=== PATIENT | female | born 1995 | race Caucasian/White ===

== ENCOUNTER 2018-03-12 14:40 | Emergency (ER) | payer BC ==
[~2018-03-12] VITALS: Ht 165.1 cm; Wt 68.9 kg
[~2018-03-12 14:40] MED LIST: BIRTH CONTROL IMPLAN; CLARITIN,ALAVAR10 MG PO; DULCOLAX5 MG PO; FLONASE16 G1 BOTH NARES; NO HOME MEDS; OXYCODONE-APAP1 EACH PO
[2018-03-12 17:02] VITALS: BP 134/70
== END 2018-03-12 17:16 | disposition home or self-care (01) ==
LOC: EME 14:40
DX: O99.323 Drug use complicating pregnancy, third trimester (principal); F14.10 Cocaine abuse, uncomplicated; F17.200 Nicotine dependence, unspecified, uncomplicated; O99.333 Smoking (tobacco) complicating pregnancy, third trimester; Z88.0 Allergy status to penicillin
CPT/HCPCS: 99281; 99284

== ENCOUNTER 2018-04-03 21:14 | Inpatient (IN) | payer BC ==
[~2018-04-03] VITALS: Ht 167.6 cm; Wt 75.0 kg
[2018-04-03 21:16] VITALS: BP 131/80
[2018-04-03 21:32] VITALS: BP 140/78
[2018-04-03 21:42] VITALS: BP 151/92
[2018-04-03] MEDS ORDERED: IBUPROFEN800 MG PO (21:51)
[2018-04-03 21:57] VITALS: BP 147/68
[2018-04-03 22:12] VITALS: BP 145/67
[2018-04-03 23:44] VITALS: BP 138/74
[2018-04-04 00:58] VITALS: BP 108/58
[2018-04-04 01:56] LABS: SOURCE URINE
[2018-04-04 02:09] LABS: THC CANNABINOIDS NEGATIVE (50 ng/mL)
[2018-04-04 02:10] LABS: AMPHETAMINE NEGATIVE (500 ng/mL); BARBITURATES NEGATIVE (200 ng/mL); BENZODIAZEPINES NEGATIVE (150 ng/mL); BUPRENORPHINE NEGATIVE (10 ng/mL); COCAINE PRESUMPTIVE POSITIVE (150 ng/mL); METHADONE NEGATIVE (200 ng/mL); METHAMPHETAMINE NEGATIVE (500 ng/mL); OPIATES (MORPHINE) NEGATIVE (100 ng/mL); OXYCODONE NEGATIVE (100 ng/mL); PHENCYCLIDINE NEGATIVE (25 ng/mL); PROPOXYPHENE NEGATIVE (300 ng/mL); TRICYCLIC ANTIDEPRESSANTS NEGATIVE (300 ng/mL)
[2018-04-04 07:14] LABS: BASOPHIL (%) 0.5 % (0-1); BASOPHIL COUNT 0.1 K/uL (0-0.1); EOSINOPHIL (%) 4.6 % (0-5); EOSINOPHIL COUNT 0.4 K/uL (0-0.3); HEMATOCRIT 29.5 % (36.0-46.0); IMMATURE GRANULOCYTE (%) 0.2 % (0.0-0.7); LYMPHOCYTE COUNT 1.6 K/uL (1.0-2.8); MCH 33.2 PG (29.0-34.0); MCHC 33.9 G/DL (30.0-36.0); MONOCYTE (%) 8.6 % (3-12); MONOCYTE COUNT 0.8 K/uL (0-0.8); NEUTROPHIL (%) 69.1 % (45-76); NEUTROPHIL COUNT 6.3 K/uL (1.8-6.4); PLATELET COUNT 168 K/uL (156-360); RBC DIS.WIDTH-SD 46.5 % (39-53); RED BLOOD COUNT 3.01 M/uL (3.80-5.20); WHITE BLOOD COUNT 9.2 K/uL (4.1-10.2)
[2018-04-05 10:28] VITALS: BP 126/74
[2018-04-06 15:20] LABS: CHLAMYDIA TRACHOMATIS NEGATIVE; NEISSERIA GONORRHOEAE NEGATIVE
== END 2018-04-05 13:53 | disposition home or self-care (01) | DRG 774 ==
LOC: LDRP-OP 21:14 → 2WEST 21:16
PROVIDERS: Midwife
PROC: 10E0XZZ Delivery of Products of Conception, External Approach (ICD-10-PCS; principal; 2018-04-03)
DX: O99.324 Drug use complicating childbirth (principal); F14.90 Cocaine use, unspecified, uncomplicated; Z3A.39 39 weeks gestation of pregnancy; Z37.0 Single live birth; O98.213 Gonorrhea complicating pregnancy, third trimester; O99.824 Streptococcus B carrier state complicating childbirth; O62.3 Precipitate labor
CPT/HCPCS: 84999; 85025; 85025 91; 87491; 87591; 88307